=== PATIENT | female | born 1990 | race Caucasian/White ===

== ENCOUNTER 2017-08-22 15:24 | Emergency (ER) | payer BC, SELFPAY ==
[2017-08-22 15:25] VITALS: BP 137/64; PULSE 112; RESP 17; TEMP 38.3; O2SAT 98; BMI 30.8
--- NOTE | 2017-08-22 15:49 | ED.VISSUMM ---
- ER Visit Summary Date of Service: 08/22/17 Chief Complaint: Cough, headache History of Present Illness: The patient is a 27 F has had a headache for 1 week. She describes a throbbing in the back of her head that radiates forward. She denies nausea or vomiting. No photophobia. She has not had any trauma. She is tried Tylenol and ibuprofen and Excedrin without relief. She also feels dizzy. She has had some mild sinus congestion. She admits to a cough as well. She has a history of lung problems he has been using her nebulizer at home without any relief. Denies any fevers. Physical Examination: Vital signs reviewed. HEENT exam unremarkable. Neck is supple. It is nontender without meningismus. Heart is regular rate and rhythm without murmurs. Lungs do have diffuse expiratory wheezing. Abdomen is soft and nontender. Extremities reveal no edema. Skin exam normal. Neurologic exam normal. Test Results: None indicated Emergency Department Course and Treatment: Patient was initially treated with Toradol and Phenergan. No improvement with this. She was given oral Decadron Compazine and Benadryl IV. She feels much better. I will give her Mucinex D to help with her sinus symptoms. This could be the cause of her headache. She will follow-up with her primary care physician Treatment Plan: [] Disposition: Discharge Impression: Headache This note was generated with [employer] dictation software. It may contain incorrect words, spelling, and punctuation that were not noted in review of the chart prior to signing ED Disposition - Plan for ED Patient: Chief Complaint: Headache
[2017-08-22] MEDS: Ketorolac 60 MG/2 ML Vial IM (16:08)
[2017-08-22] MEDS: 0.9% Normal Saline 1,000 ML 999 ML IV (17:18)
[2017-08-22] MEDS: proCHLORPERazine 10 MG/2 ML Vial IV (17:18)
[2017-08-22] MEDS: DiphenhydrAMINE 50 MG/ML Syringe 25 MG IV (17:18)
--- NOTE | 2017-08-22 17:45 | ED.DEP ---
ED Disposition - Plan for ED Patient: Disposition: Home or Assisted Living Chief Complaint: Headache Instructions: ED Cephalgia Unspecified Prescriptions: Guaifenesin/Pseudoephedrne HCl [Mucinex D ER 1,200-120 mg Tab] 1 ea PO BID #[id number] Referrals: Care Physician,No Primary [Primary Care Provider] -
[2017-08-22 18:05] VITALS: BP 129/74; PULSE 81; RESP 16; O2SAT 98
--- NOTE | 2017-08-22 18:06 | ED.RN ---
THIS NURSE REVIEWED D/C INSTRUCTIONS WITH PT. PT VERBALIZED UNDERSTANDING OF INSTRUCTIONS. IV D/C. IV CATHETER INTACT. PT TOLERATED WELL. PT DENIES FURTHER NEEDS OR QUESTIONS AT THIS TIME.
== END 2017-08-22 18:06 | disposition home or self-care (01) ==
PROVIDERS: Emergency Provider Emergency Medicine
DX: R51 Headache (principal); R05 Cough; J45.909 Unspecified asthma, uncomplicated; Z72.0 Tobacco use
CPT/HCPCS: 96361; 96372; 96374; 96375; 99284; J7030